=== PATIENT | male | born 2000 | race Two or more races ===

== ENCOUNTER 2020-09-07 20:17 | Emergency (ER) | payer MEDICAID ==
[~2020-09-07] VITALS: Ht 182.9 cm; Wt 90.9 kg
[2020-09-07 20:55] VITALS: BP 129/78
[2020-09-07] MEDS ORDERED: HYDROcodone/acetaminophen 5mg/325mg tablet PO ONE (23:40)
== END 2020-09-07 23:56 | disposition home or self-care (01) ==
LOC: ER 20:18
DX: S92.352A Displaced fracture of fifth metatarsal bone, left foot, initial encounter for closed fracture (principal); F17.210 Nicotine dependence, cigarettes, uncomplicated; W21.05XA Struck by basketball, initial encounter; Y93.89 Activity, other specified; Y92.89 Other specified places as the place of occurrence of the external cause; Y99.8 Other external cause status
CPT/HCPCS: 73610; 99283

== ENCOUNTER 2020-10-26 07:06 | Day surgery (SDC) | payer OTHER ==
[2020-10-23 11:33] LABS: BASOPHILS # (AUTO) 0.1 X10'3 (0-0.2); BASOPHILS % (AUTO) 0.6 % (0-1); EOSINOPHILS # (AUTO) 0.1 X10'3 (0-0.9); EOSINOPHILS % (AUTO) 0.8 % (0-6); LYMPHOCYTES # (AUTO) 2.1 X10'3 (1.1-4.8); LYMPHOCYTES % (AUTO) 22.8 % (21-51); MEAN CORPUSCULAR HEMOGLOBIN 27.6 PG (27.0-31.0); MEAN CORPUSCULAR HGB CONC 34.2 g/dL (33.0-36.5); MEAN CORPUSCULAR VOLUME 80.7 FL (78-98); MEAN PLATELET VOLUME 8.6 FL (7.4-10.4); MONOCYTES # (AUTO) 0.8 X10'3 (0-0.9); MONOCYTES % (AUTO) 8.4 % (2-12); NEUTROPHILS # (AUTO) 6.1 X10'3 (1.8-7.7); NEUTROPHILS % (AUTO) 67.4 % (42-75); PRE OP HEMATOCRIT 45.5 % (42.0-52.0); PRE OP HEMOGLOBIN 15.6 g/dL (14.0-17.9); PRE OP PLATELET COUNT 299 X10'3 (140-440); RED BLOOD COUNT 5.64 X10'6 (4.70-6.10)
[2020-10-23 11:35] LABS: CLARITY,URINE CLEAR (Clear); COLOR,URINE YELLOW (Yellow); GLUCOSE, URINE NEGATIVE (Neg); KETONES,URINE NEGATIVE (Neg); LEUKOCYTE ESTERASE ,URINE NEGATIVE (Neg); NITRITES, URINE NEGATIVE (Neg); OCCULT BLOOD,URINE NEGATIVE (Neg); PROTEIN,URINE NEGATIVE (Neg); UROBILINOGEN,URINE 0.2 E.U/dL (0.2-1.0)
[2020-10-23 11:40] LABS: UA COLLECTION TYPE VOIDED
[2020-10-23 11:49] LABS: ALBUMIN 4.3 G/DL (3.4-5.0); ALBUMIN/GLOBULIN RATIO 1.2 (1.1-1.5); ALKALINE PHOSPHATASE 115 IU/L (20-180); BLOOD UREA NITROGEN 10 MG/DL (7-18); BUN/CREATININE RATIO 11.1 (5.4-32.0); CALCIUM 8.9 MG/DL (8.5-10.1); CHLORIDE 103 MMOL/L (99-107); PRE OP ALT 53 U/L (30-65); PRE OP ANION GAP 8 (8-16); PRE OP AST 25 U/L (10-37); PRE OP BILIRUB, TOTAL 0.5 MG/DL (0.0-1.0); PRE OP GLUCOSE 96 MG/DL (70-104); PRE OP SODIUM 142 MMOL/L (135-145); TOTAL CARBON DIOXIDE 31.4 MMOL/L (24-32); TOTAL PROTEIN 7.8 G/DL (6.4-8.2); eGFR > 90 ML/MIN
[~2020-10-26] VITALS: Ht 182.9 cm; Wt 96.0 kg
[2020-10-26] VITALS (8 sets, daily range): BP systolic 109–140; BP diastolic 55–91
[~2020-10-26 07:06] MED LIST: BUPIVAcaine/PF 2.5mg/ml (0.25%) 10ml vial ONE; HYDR-3965 PO; bacitracin 15gm ointment TP ONE; cefazolin/dext.iso 2gm/100ml IV ONE; famotidine 20mg tablet PO ONE; ringers solution, lacted 1,000 ML IV SCH
[2020-10-26] MEDS ORDERED: bacitracin 15gm ointment TP ONE (08:28)
[2020-10-26] MEDS ORDERED: BUPIVAcaine/PF 2.5 mg/ml (0.25%) 30ml vial ONE ×2 (08:28→11:53)
[2020-10-26] MEDS ORDERED: labetalol 20mg/4ml (5mg/ml) syringe IV PRN (08:40)
[2020-10-26] MEDS ORDERED: ondansetron/PF 4mg/2ml inj IV PRN (08:40)
[2020-10-26] MEDS ORDERED: fentaNYL/PF 50MCG/1 ML 2ML syringe IV PRN ×2 (08:40)
[2020-10-26] MEDS ORDERED: ringers solution, lacted 1,000 ML IV SCH (08:40)
[2020-10-26] MEDS ORDERED: morphine 2 MG/ML inj. syringe IV PRN (08:40)
[2020-10-26] MEDS ORDERED: hydrALAZINE 20mg/ml inj. IV PRN (08:40)
[2020-10-26] MEDS ORDERED: morphine 4 MG/ML inj SYRINge IV PRN (08:40)
[2020-10-26] MEDS ORDERED: ROPIVAcaine 0.5% (5mg/ml) 30ml vial ONE (09:22)
[2020-10-26] MEDS ORDERED: sevoflurane 250ml liquid IH ONE (11:05)
[2020-10-26] MEDS ORDERED: dexamethasone sod phosphate 10mg/ml inj ONE (11:05)
[2020-10-26] MEDS ORDERED: fentaNYL/PF 50MCG/1 ML 2ML syringe ONE (11:13)
[2020-10-26] MEDS ORDERED: midazolam 1 mg/ML 2ml injection ONE (11:13)
[2020-10-26] MEDS ORDERED: LIDOcaine 2% (20mg/ml) 5ml vial ONE ×3 (11:22→11:24)
[2020-10-26] MEDS ORDERED: ondansetron/PF 4mg/2ml inj ONE (11:24)
[2020-10-26] MEDS ORDERED: propofol inj 20 ML IV ONE (11:24)
[2020-10-26] MEDS ORDERED: LIDOcaine 1% 30ml preserv. free vial ONE (11:54)
--- NOTE | 2020-10-26 12:24 | NUR ---
Assume care, vss no distress. Dressing to left foot intact +cms to the foot. Asousable to name denies pain. Simple mask in place 10l sat
--- NOTE | 2020-10-26 12:24 | NUR ---
Assume care pt arousable to name, vss no distress, Dressing to left foot intact, +cms to left foot, elevated lfoot and applied ice. Cont to monitor Addendum: 10/26/20 at 1242 by Milady Ambrose RN Amended: Links added.
--- NOTE | 2020-10-26 13:24 | NUR ---
Patient given discharge instructions and instructed to follow up with Dr. Loyola when appointment is made to ask about when he can return to work. Ice and elevate. Patient starting to have feeling in left foot, toes pink and less numb. Has prescription for NOrcos given prior to surgery and are available at home already. Girlfriend is driving him home. All belongings accounted for. Patient denies pain. Dressing CDI. 20g IV discontinued from left hand.
== END 2020-10-26 13:24 | disposition home or self-care (01) ==
LOC: PAS 07:06
PROVIDERS: ATTEND Podiatrist Foot & Ankle Surgery
DX: S92.352A Displaced fracture of fifth metatarsal bone, left foot, initial encounter for closed fracture (principal); Z20.822 Contact with and (suspected) exposure to COVID-19; Z79.899 Other long term (current) drug therapy; G89.18 Other acute postprocedural pain; F12.90 Cannabis use, unspecified, uncomplicated; Z98.890 Other specified postprocedural states; X58.XXXA Exposure to other specified factors, initial encounter; Y93.89 Activity, other specified; Y92.89 Other specified places as the place of occurrence of the external cause; Y99.8 Other external cause status
CPT/HCPCS: 28485; 36415; 64447; 64450; 73620; 76000; 76942; 80053; 81003; 82948; 85025; A6223; C1713; J1100; J2001; J2250; J2270; J2405; J2704; J3010; J3490; U0003; U0005; A4215; A4618; A6449; A7000; J2795; J7120

== ENCOUNTER 2021-11-20 10:13 | Outpatient (CLI) | payer MEDICAID ==
[~2021-11-20 10:13] MED LIST changes: -BUPIVAcaine/PF 2.5mg/ml (0.25%) 10ml vial ONE; -bacitracin 15gm ointment TP ONE; -cefazolin/dext.iso 2gm/100ml IV ONE; -famotidine 20mg tablet PO ONE; -ringers solution, lacted 1,000 ML IV SCH
== END 2021-11-20 23:59 | disposition home or self-care (01) ==
LOC: RT 10:13
PROVIDERS: ATTEND Nurse Practitioner Family
DX: R06.02 Shortness of breath (principal); R06.2 Wheezing; Z87.891 Personal history of nicotine dependence
CPT/HCPCS: 94010